=== PATIENT | male | born 1990 | race Hispanic/Latino ===

== ENCOUNTER 2020-06-04 15:36 | Emergency (ER) | payer SELFPAY ==
[2020-06-04] MEDS ORDERED: KETOROLAC 30MG VIAL (30MG/ML) ONE (16:55)
[2020-06-04] MEDS ORDERED: ACETAMINOPHEN WITH CODEINE 1 TAB TAB ONE (16:55)
== END 2020-06-04 17:32 | disposition home or self-care (01) ==
LOC: EDH 15:36
DX: S40.022A Contusion of left upper arm, initial encounter (principal); Z72.0 Tobacco use; Z88.8 Allergy status to other drugs, medicaments and biological substances; X50.0XXA Overexertion from strenuous movement or load, initial encounter; Y93.89 Activity, other specified; Y92.098 Other place in other non-institutional residence as the place of occurrence of the external cause; Y99.8 Other external cause status
CPT/HCPCS: 73090; 96372; 99283; J1885

== ENCOUNTER 2022-12-30 15:54 | Emergency (ER) | payer OTHER ==
[~2022-12-30] VITALS: Ht 170.2 cm; Wt 142.9 kg
[2022-12-30] MEDS ORDERED: LIDOCAINE HCL 1% 20 ML VIAL ONE (18:20)
[2022-12-30 19:09] VITALS: BP 152/82; PULSE 89; RESP 16; O2SAT 100
[2022-12-30] MEDS ORDERED: CEPH500B PO (19:38)
[2022-12-30] MEDS ORDERED: ACET-2079 PO (19:38)
== END 2022-12-30 20:10 | disposition home or self-care (01) ==
LOC: EDH 15:54
DX: S62.633A Displaced fracture of distal phalanx of left middle finger, initial encounter for closed fracture (principal); S61.213A Laceration without foreign body of left middle finger without damage to nail, initial encounter; F41.9 Anxiety disorder, unspecified; Z88.8 Allergy status to other drugs, medicaments and biological substances; X58.XXXA Exposure to other specified factors, initial encounter; Y93.89 Activity, other specified; Y92.89 Other specified places as the place of occurrence of the external cause; Y99.8 Other external cause status
CPT/HCPCS: 12001; 73140